=== PATIENT | male | born 1985 | race Caucasian/White ===

== ENCOUNTER 2019-09-27 19:13 | Emergency (ER) | payer SELFPAY ==
[2019-09-27 19:26] VITALS: BP 115/58; PULSE 90; RESP 17; TEMP 36.9; O2SAT 97; BMI 23.7
--- NOTE | 2019-09-27 20:54 | ED_ITS ---
Entered by Ivanna Fam, acting as scribe for Melissa Cabezas MD Sep 27, 2019 19:13 HPI - General Adult General: Chief complaint: General Medical Stated complaint: difficulty breathing Time Seen by Provider: 09/27/19 20:48 Source: patient and family Mode of arrival: ambulatory Limitations: no limitations History of Present Illness: HPI narrative: 34 yo Male presents to ED with complaint of shortness of breath, neck pain, back pain, and cough. Pt states that his throat really doesn't hurt but his neck hurts. Pt's family states that the patient's cough started on Wednesday. Pt states that he has been running a fever. Pt states that his kids have had strep throat and all kinds of viruses. Pt states he has body aches and feels like his lungs hurt. MD complaint: flu like symptoms Onset (ago): day(s) Location: head and neck Radiation: back and neck Severity scale (1-10): 8 Quality: aching Pain Consistency: constant Relieving factors: none Exacerbating factors: other (deep breaths) Associated symptoms: Reports cough, dyspnea, fevers/chills and short of breath; Deny chest pain, headache(s), nausea, rash or vomiting Treatments prior to arrival: none Review of Systems General: Reports: 10 or more systems reviewed and unremarkable except in HPI and below Const: Reports: body aches and fatigue; Denies: fever or chills Eyes: Denies: change in vision ENMT: Denies: throat pain Card: Denies: chest pain Resp: Reports: shortness of breath GI: Denies: abdominal pain, nausea, vomiting or change in bowel habits Musc: Reports: neck pain and back pain; Denies: muscle weakness Skin/Breast: Denies: rash Neuro: Denies: headache Psych: Denies: hopelessness or suicidal ideation Endo: Denies: excessive urination Dario/Lymph: Denies: easy bruising or easy bleeding All/Imm: Denies: hives [facility] ED PFSH: Social History Smoking and tobacco status: current every day smoker Physical Exam Const: COMMON NORMALS: no apparent distress, average body habitus, oriented x3, no limitations, healthy appearing, alert and well nourished HENMT: COMMON NORMALS: normocephalic, external ears normal and external nose normal HEAD & SCALP: normocephalic NOSE: external nose normal EXTERNAL EAR: Yes external ears normal MOUTH: oral and palatal mucosa normal THROAT: posterior oropharynx abnormal erythema; no exudates; posterior oropharynx not normal Eye: COMMON NORMALS: PERRL, EOMs intact bilaterally, conjunctivae normal, no scleral icterus and normal visual fofana by confrontation CONJUNCTIVA: Yes conjunctivae normal PUPIL: Yes PERRL Neck/C-Spine: COMMON NORMALS: full ROM, supple, no meningeal signs and no JVD; negative for no lymphadenopathy GENERAL: Yes lymphadenopathy (mild) matted CERVICAL SPINE: Yes cervical ROM normal Lymph: LYMPHATIC: no lymphadenopathy noted Chest: COMMONS NORMALS: inspection of chest normal Resp: COMMON NORMALS: normal respiratory effort, no retractions, no use of accessory muscles and clear to auscultation bilaterally AUSCULTATION: clear to auscultation bilaterally Cardio: COMMON NORMALS: no JVD, regular rate, regular rhythm, no gallops, no clicks, no murmurs and no rub RATE: regular rate RHYTHM: regular rhythm GI: COMMON NORMALS: normal to inspection, nondistended, normoactive bowel sounds, soft to palpation and non-tender AUSCULTATION: Yes normoactive bowel sounds PALPATION: Yes soft : COMMON NORMALS: Yes no CVA tenderness BLADDER/KIDNEY EXAM: Yes no CVA tenderness Back/Pelvis: COMMON NORMALS: no CVA tenderness Extremity: COMMON NORMALS: normal to inspection Neuro: COMMON NORMALS: oriented x3 SENSORIUM/ORIENTATION: Yes alert MENINGEAL SIGNS: Yes no meningeal signs SPEECH: speech normal Psych: COMMON NORMALS: mental status grossly normal, thought process normal, cooperative, affect normal, speech normal, activity/motor behavior normal, denies hallucinations, denies homicidal ideation and denies suicidal ideation SPEECH: Yes normal speech THOUGHT PROCESS: normal thought process Skin: COMMON NORMALS: no rashes or lesions noted GENERAL SKIN EXAM: no rashes or lesions noted Course Vital Signs: Vital signs: Vital Signs Temperature 98.4 F 09/27/19 19:26 Pulse Rate 90 09/27/19 19:26 Respiratory Rate 17 09/27/19 19:26 Blood Pressure 115/58 09/27/19 19:26 Pulse Oximetry 97 09/27/19 19:26 MDM - General Adult MDM Narrative: Medical decision making narrative: 34-year-old male with negative flu and negative strep swab. No pneumonia on his chest x-ray. I explained to him and his that he likely still has a viral flulike illness that may last up to 7 to 10 days. All questions answered to their satisfaction. Lab Data: Attestation: I reviewed the patient's lab results. Labs: Lab Results 09/27/19 09/27/19 Range/Units 20:47 20:47 Influenza Type A A g Negative (Negative) POC Influenza B Ag Negative (Negative) Group A Strep Rapi d Negative (Negative) Imaging Data^: CXR: Attestation: I personally reviewed and interpreted this imaging study as follows: My impression: No infiltrate no effusion Discharge Plan Discharge Patient Disposition: Home, Self-Care Clinical Impression: Viral illness Condition: Stable Prescriptions: No Action No Known Home Medications RF: 0 Patient Instructions: Viral Syndrome (ED) Activity Restrictions/Additional Instructions: Rest as much as possible and stay hydrated try to avoid caffeine. As we discussed use [id number] symptomatic medication such as generic NyQuil and/or DayQuil. Your symptoms may last up to 7 to 10 days. Coding Level of Care Code ED Channel Cementer Outsole Machine for Chg Fwd Exam Comprehensive The documentation recorded by the Cristel abrams Carmen, accurately reflects the service I personally performed and the decisions made by me, Melissa Cabezas MD Sep 27, 2019 19:13
[2019-09-27 21:09] LABS: Rapid Strep A Test Negative (Negative)
--- NOTE | 2019-09-27 21:09 | XR_ITS ---
WS: [id number] XR chest 2V* [id number] REASON FOR EXAM: soa FINDINGS: The nasogastric tube is been removed as compared to 05/11/2018. The lung fofana are mildly hyper aerated. There is no mucous plugs seen no pneumonia congestion are pulmonary edema. The hilum and apices are normal. XR/XR chest 2V* [id number] IMPRESSION: Hyper aerated lungs otherwise normal chest
[2019-09-27 21:19] LABS: Influenza A by IFA Negative (Negative); Influenza B by IFA Negative (Negative)
== END 2019-09-27 23:08 | disposition home or self-care (01) ==
PROVIDERS: Emergency Provider Emergency Medicine
DX: B34.9 Viral infection, unspecified (principal); F17.210 Nicotine dependence, cigarettes, uncomplicated
CPT/HCPCS: 12345; 71046; 87081; 87804; 87880; 99282; 99283

== ENCOUNTER 2019-10-03 18:22 | Emergency (ER) | payer SELFPAY ==
[2019-10-03 18:51] VITALS: BP 133/82; PULSE 80; RESP 16; TEMP 36.4; O2SAT 97; BMI 24.3
--- NOTE | 2019-10-03 20:03 | CTR_ITS ---
PROCEDURE INFORMATION: Exam: CT Head Without Contrast Exam date and time: 10/03/2019 8:29 PM Age: 34 years old Clinical indication: Injury or trauma; Fall; Work related; Additional info: Fall 25 feet TECHNIQUE: Imaging protocol: Computed tomography of the head without contrast. Total DLP: 892 mGy-cm Radiation optimization: All CT scans at this facility use at least one of these dose optimization techniques: automated exposure control; mA and/or kV adjustment per patient size (includes targeted exams where dose is matched to clinical indication); or iterative reconstruction. COMPARISON: CT head wo con* [id number] 09/06/2018 7:18 PM FINDINGS: Brain: Normal. No hemorrhage. Unremarkable white matter. No mass effect. Ventricles: Normal. No ventriculomegaly. Bones/joints: Unremarkable. No acute fracture. Sinuses: Visualized sinuses are unremarkable. No fluid levels. Mastoid air cells: Visualized mastoid air cells are well aerated. Soft tissues: Unremarkable. CT/CT head wo con* [id number] IMPRESSION: No acute intracranial abnormality. Radiation Dose CTDIVOL = (mGy): DLP = 892 (mGy-cm)
--- NOTE | 2019-10-03 20:03 | CTR_ITS ---
PROCEDURE INFORMATION: Exam: CT Lumbar Spine Without Contrast Exam date and time: 10/03/2019 8:29 PM Age: 34 years old Clinical indication: Injury or trauma; Work related; Initial encounter; Blunt trauma (contusions or hematomas); Injury details: Fall off ladder yesterday, [place] painfall off ladder yesterday, CO pain; Additional info: Back pain; Fall 25 feet TECHNIQUE: Imaging protocol: Computed tomography images of the lumbar spine without contrast. Total DLP: 2043.35 mGy-cm Radiation optimization: All CT scans at this facility use at least one of these dose optimization techniques: automated exposure control; mA and/or kV adjustment per patient size (includes targeted exams where dose is matched to clinical indication); or iterative reconstruction. COMPARISON: No relevant prior studies available. FINDINGS: Vertebrae: No acute fracture. Normal alignment. Discs/Spinal canal/Neural foramina: There is a small disc bulge at L2-L3 without significant stenosis or foraminal narrowing. At L3-L4, there is a moderate disc bulge with mild narrowing of the central canal and [id number] bilateral foraminal narrowing accentuated by mild facet and ligamentum flavum hypertrophy but no critical stenosis. At L4-L5, there is a small disc bulge without stenosis or significant foraminal narrowing. There is a small disc bulge at L5-S1 with mild left foraminal narrowing but no critical stenosis. Soft tissues: Unremarkable. CT/CT lumbar spine wo con* [id number] IMPRESSION: 1. No acute bony abnormality. 2. Small disc bulges with mild narrowing of the central canal and foramina but no critical stenosis. Radiation Dose CTDIVOL = (mGy): DLP = 2043.35 (mGy-cm)
--- NOTE | 2019-10-03 20:03 | CTR_ITS ---
PROCEDURE INFORMATION: Exam: CT Thoracic Spine Without Contrast Exam date and time: 10/03/2019 8:29 PM Age: 34 years old Clinical indication: Injury or trauma; Work related; Initial encounter; Blunt trauma (contusions or hematomas); Injury details: Fall off ladder yesterday, CO pain; Additional info: Back pain; 25 ft fall TECHNIQUE: Imaging protocol: Computed tomography images of the thoracic spine without contrast. Total DLP: 1421.87 mGy-cm Radiation optimization: All CT scans at this facility use at least one of these dose optimization techniques: automated exposure control; mA and/or kV adjustment per patient size (includes targeted exams where dose is matched to clinical indication); or iterative reconstruction. COMPARISON: No relevant prior studies available. FINDINGS: Vertebrae: No acute fracture. Normal alignment. Discs/Spinal canal/Neural foramina: No spinal canal stenosis. Soft tissues: Unremarkable. There is mild volume loss in the lungs. Mild emphysematous changes. CT/CT thoracic spin wo con* [id number] IMPRESSION: Unremarkable CT Spine. Radiation Dose CTDIVOL = (mGy): DLP = 1421.87 (mGy-cm)
--- NOTE | 2019-10-03 20:03 | XRR_ITS ---
PROCEDURE INFORMATION: Exam: XR Left Elbow Exam date and time: 10/03/2019 8:05 PM Age: 34 years old Clinical indication: Injury or trauma; Fall; Work related; Initial encounter; Blunt trauma (contusions or hematomas; Elbow; Left TECHNIQUE: Imaging protocol: XR Left elbow. Views: 3 or more views. COMPARISON: No relevant prior studies available. FINDINGS: Bones/joints: There is no elbow joint effusion. There is a small olecranon enthesophyte. The bone density is appropriate. No periosteal reaction. No osteomyelitis. No acute fracture or dislocation. No bony destructive changes. Soft tissues: There is soft tissue edema overlying the olecranon process that may reflect an olecranon hematoma or bursitis. No foreign body. No gas in the soft tissues. XR/XR elbow LT min 3V* [id number] IMPRESSION: 1. No acute bony abnormality. 2. There is soft tissue edema overlying the olecranon process that may reflect an olecranon hematoma or bursitis.
--- NOTE | 2019-10-03 20:03 | CTR_ITS ---
PROCEDURE INFORMATION: Exam: CT Cervical Spine Without Contrast Exam date and time: 10/03/2019 8:29 PM Age: 34 years old Clinical indication: Injury or trauma; Fall; Work related; Initial encounter; Blunt trauma; Additional info: Neck pain; 25 ft fall TECHNIQUE: Imaging protocol: Computed tomography images of the cervical spine without contrast. Total DLP: 670.36 mGy-cm Radiation optimization: All CT scans at this facility use at least one of these dose optimization techniques: automated exposure control; mA and/or kV adjustment per patient size (includes targeted exams where dose is matched to clinical indication); or iterative reconstruction. COMPARISON: CT Cervical Spine wo* [id number] 09/06/2018 7:21 PM FINDINGS: Vertebrae: No acute fracture. Normal alignment. Discs/Spinal canal/Neural foramina: No disc herniations. No spinal canal stenosis. No neural foraminal narrowing. Soft tissues: Unremarkable. Lungs: Lung apices are normal. Emphysematous changes are noted. CT/CT cervical spin wo con* [id number] IMPRESSION: No acute findings. Radiation Dose CTDIVOL = (mGy): DLP = 670.36 (mGy-cm)
--- NOTE | 2019-10-03 20:03 | CTR_ITS ---
PROCEDURE INFORMATION: Exam: CT Chest With Contrast Exam date and time: 10/03/2019 8:29 PM Age: 34 years old Clinical indication: Injury or trauma; Fall; Work related; Initial encounter; Generalized; Blunt trauma (contusions or hematomas); Additional info: Fall 25 ft TECHNIQUE: Imaging protocol: Computed tomography of the chest with intravenous contrast. Total DLP: 1268.82 mGy-cm Radiation optimization: All CT scans at this facility use at least one of these dose optimization techniques: automated exposure control; mA and/or kV adjustment per patient size (includes targeted exams where dose is matched to clinical indication); or iterative reconstruction. Contrast material: VISI; Contrast volume: 95 ml; Contrast route: 20G; COMPARISON: CT abdomen pelvis w con* [id number] 05/11/2018 5:24 AM FINDINGS: Lungs: There is subpleural atelectasis of the dependent portions of the lungs. Pleural space: Unremarkable. No pneumothorax. No pleural effusion. Heart: Unremarkable. No cardiomegaly. No pericardial effusion. Aorta: Unremarkable. No aortic aneurysm. Lymph nodes: Unremarkable. No enlarged lymph nodes. Bones/joints: Unremarkable. No acute fracture. Soft tissues: Unremarkable. IMPRESSION: No acute abnormality. PROCEDURE INFORMATION: Exam: CT Abdomen And Pelvis With Contrast Exam date and time: 10/03/2019 8:29 PM Age: 34 years old Clinical indication: Injury or trauma; Fall; Work related; Initial encounter; Generalized; Blunt trauma (contusions or hematomas); Additional info: fall TECHNIQUE: Imaging protocol: Computed tomography of the abdomen and pelvis with intravenous contrast. Total DLP: 1268.82 mGy-cm Radiation optimization: All CT scans at this facility use at least one of these dose optimization techniques: automated exposure control; mA and/or kV adjustment per patient size (includes targeted exams where dose is matched to clinical indication); or iterative reconstruction. Contrast material: VISI; Contrast volume: 95 ml; Contrast route: 20G; COMPARISON: CT abdomen pelvis w con* [id number] 05/11/2018 5:24 AM FINDINGS: Liver: Unremarkable.No mass. Gallbladder and bile ducts: Normal. No calcified stones. No ductal dilation. Pancreas: Normal. No ductal dilation. Spleen: Normal. No splenomegaly. Adrenals: Normal. No mass. Kidneys and ureters: Normal. No hydronephrosis. Stomach and bowel: Unremarkable. No obstruction. No mucosal thickening. Appendix: No evidence of appendicitis. Intraperitoneal space: Unremarkable. No free air. No significant fluid collection. Vasculature: Unremarkable.No abdominal aortic aneurysm. Lymph nodes: Unremarkable.No enlarged lymph nodes. Bladder: Unremarkable as visualized. Reproductive: Unremarkable as visualized. Bones/joints: Unremarkable. No acute fracture. Soft tissues: Unremarkable. CT/CT chest abd pel w con* IMPRESSION: No acute findings. Radiation Dose CTDIVOL = (mGy): DLP = 1268.82~1268.82 (mGy-cm)
--- NOTE | 2019-10-03 20:05 | W.ED.FALL ---
HPI - Fall General: Chief Complaint: Fall Stated Complaint: FELL OFF A LADDER Time Seen by Provider: 10/03/19 19:59 Source: patient Mode of arrival: ambulatory Limitations: no limitations History of Present Illness: HPI Narrative: Patient is a 34-year-old male who presents to ED today with multiple physical complaints stemming from a 25 foot ladder fall that occurred yesterday. Patient states it was raining and he slipped off the ladder at a height of 25 feet and landed directly onto his back. Patient states he has a headache, neck pain, back pain, and chest pain. Patient states he did not receive any sleep last night due to his discomfort. He does not report losing consciousness but thinks he did strike his head. MD complaint: fall Onset (ago): hour(s) Fall from: from height (distance) (25 feet) Fall witnessed: yes, by bystander Place fall occurred: work Loss of consciousness: None Prolonged down time: no Symptoms prior to fall: none Context: tripped/slipped Location of injury: head, neck, chest and back Associated symptoms-after fall: Reports chest pain, headache(s) and neck pain; Denies abdominal pain or lightheadedness Review of Systems Const: Denies: fever, chills, body aches, change in appetite, change in weight or fatigue Eyes: Denies: change in vision or blurry vision Card: Reports: chest pain; Denies: palpitations, irregular heart rhythm, edema, lightheadedness, syncope, pre-syncope or shortness of breath when lying down Resp: Reports: pain on inspiration; Denies: shortness of breath, productive cough, coughing up blood or chest congestion GI: Denies: abdominal pain, nausea or vomiting : Denies: flank pain, difficulty urinating, painful urination, urinary frequency or urinary urgency Musc: Reports: neck pain and back pain Neuro: Reports: headache; Denies: numbness in extremities, weakness in extremities or changes in sensation PFS ED PFSH: Social History Smoking and tobacco status: current every day smoker Physical Exam Const: COMMON NORMALS: no apparent distress, average body habitus, oriented x3, no limitations, healthy appearing, alert and well nourished HENMT: COMMON NORMALS: normocephalic and head/scalp atraumatic HEAD & SCALP: normocephalic and atraumatic Neck/C-Spine: OTHER: c-collar placed; TTP along mid cervical spine Chest: COMMONS NORMALS: inspection of chest normal OTHER: TTP along anterior and bilateral chest perry Resp: COMMON NORMALS: normal respiratory effort and clear to auscultation bilaterally AUSCULTATION: clear to auscultation bilaterally Cardio: COMMON NORMALS: regular rate and regular rhythm RATE: regular rate RHYTHM: regular rhythm GI: COMMON NORMALS: normal to inspection, nondistended, normoactive bowel sounds, soft to palpation, no hepatosplenomegaly and no masses PALPATION: Yes soft, Yes tender (RLQ) and Yes no hepatosplenomegaly Back/Pelvis: THORACIC SPINE/UPPER BACK: Yes thoracic spinal tenderness T-spine tenderness location: T4, T5, T6, T7 and T8 LUMBAR SPINE/LOWER BACK: Yes lumbar spinal tenderness Lumbar spinal tenderness location: L3, L4 and L5 Extremity: OTHER: TTP and limited ROM of L elbow; swelling noted; NV intact extremities are otherwise normal to inspection with normal ROM Neuro: COMMON NORMALS: oriented x3 SENSORIUM/ORIENTATION: Yes alert Skin: COMMON NORMALS: no rashes or lesions noted GENERAL SKIN EXAM: no rashes or lesions noted Course Vital Signs: Vital signs: Vital Signs Temperature 97.6 F 10/03/19 18:51 Pulse Rate 80 10/03/19 18:51 Respiratory Rate 16 10/03/19 21:39 Blood Pressure 133/82 10/03/19 18:51 Pulse Oximetry 97 10/03/19 18:51 MDM - Fall Lab Data: Labs: Lab Results 10/03/19 10/03/19 Range/Units 20:14 20:14 WBC 6.8 (4.0-10.0) 10^3/ uL RBC 4.01 L (4.1-5.3) 10^6/u L Hgb 12.3 (11.7-16.6) g/dL Hct 37.2 L (42.0-52.0) % MCV 92.8 (80-94) fL MCH 30.7 (28.0-34.0) pg MCHC 33.1 (30.0-36.0) g/dL RDW 12.8 (12.1-15.1) % Plt Count 169 (130-400) 10^3/c mm MPV 10.0 (7.4-10.4) fL Neut % (Auto) 46.9 % Lymph % (Auto) 40.2 % [place] % (Auto) 6.6 % Eos % (Auto) 5.8 % Baso % (Auto) 0.4 % Neut # (Auto) 3.2 (1.8-7.7) 10^3/u L Lymph # (Auto) 2.7 (0.8-4.8) 10^3/u L [place] # (Auto) 0.5 (0.2-0.9) 10^3/u L Eos # (Auto) 0.4 (0.0-0.8) 10^3/u L Baso # (Auto) 0.0 (0.0-0.1) 10^3/u L Nucleated RBC % (a uto) 0 % Nucleated RBCs # 0.0 /100WBC Sodium 141 (136-145) mmol/L Potassium 4.0 (3.5-5.1) mmol/L Chloride 102 (98-107) mmol/L Carbon Dioxide 29 (22-29) mmol/L Anion Gap 14.0 (5-19) BUN 12 (6-20) mg/dL Creatinine 0.9 (0.7-1.2) mg/dL GFR Calculation 96.0 (90-130) mL/min Glucose 100 (65-115) mg/dL Calculated Osmolal ity 288 (285-295) mOsm/k g Calcium 9.9 (8.5-10.5) mg/dL Total Bilirubin 0.2 (0.15-1.2) mg/dL AST 24 (0-40) U/L ALT 15 (0-41) U/L Alkaline Phosphata se 62 (40-130) IU/L Total Protein 7.1 (6.6-8.7) g/dL Albumin 4.7 (3.5-5.2) g/dL Globulin 2.4 (1.3-4.6) g/dL Imaging Data^: L elbow XR: Radiologist's impression: [address] [address] XRay Report Signed Patient: Chadwick Chaves Unit #: [id number] : 1985 Age/Sex: 34 / M ADM Date: 10/03/19 Loc: ER Room/Bed: Attending Dr: Ordering Provider/Ordering MD: Miracle Mccracken Date of Service: 10/03/19 Procedure(s): XR elbow LT min 3V* [id number] Accession Number(s): [id number] Report Number: [id number] PROCEDURE INFORMATION: Exam: XR Left Elbow Exam date and time: 10/03/2019 8:05 PM Age: 34 years old Clinical indication: Injury or trauma; Fall; Work related; Initial encounter; Blunt trauma (contusions or hematomas; Elbow; Left TECHNIQUE: Imaging protocol: XR Left elbow. Views: 3 or more views. COMPARISON: No relevant prior studies available. FINDINGS: Bones/joints: There is no elbow joint effusion. There is a small olecranon enthesophyte. The bone density is appropriate. No periosteal reaction. No osteomyelitis. No acute fracture or dislocation. No bony destructive changes. Soft tissues: There is soft tissue edema overlying the olecranon process that may reflect an olecranon hematoma or bursitis. No foreign body. No gas in the soft tissues. XR/XR elbow LT min 3V* [id number] IMPRESSION: 1. No acute bony abnormality. 2. There is soft tissue edema overlying the olecranon process that may reflect an olecranon hematoma or bursitis. Dictated By: Yoanna Madrid Signed By: Yoanna Madrid Signed Date/Time: 10/03/192052 DD/ 51 CT Head: Radiologist's impression: [address] [address] [address] Scan Report Signed Patient: Chadwick Chaves Unit #: [id number] : 1985 Age/Sex: 34 / M ADM Date: 10/03/19 Loc: ER Room/Bed: Attending Dr: Ordering Provider/Ordering MD: Miracle Mccracken Date of Service: 10/03/19 Procedure(s): CT head wo con* [id number] Accession Number(s): [id number] Report Number: [id number] PROCEDURE INFORMATION: Exam: CT Head Without Contrast Exam date and time: 10/03/2019 8:29 PM Age: 34 years old Clinical indication: Injury or trauma; Fall; Work related; Additional info: Fall 25 feet TECHNIQUE: Imaging protocol: Computed tomography of the head without contrast. Total DLP: 892 mGy-cm Radiation optimization: All CT scans at this facility use at least one of these dose optimization techniques: automated exposure control; mA and/or kV adjustment per patient size (includes targeted exams where dose is matched to clinical indication); or iterative reconstruction. COMPARISON: CT head wo con* [id number] 09/06/2018 7:18 PM FINDINGS: Brain: Normal. No hemorrhage. Unremarkable white matter. No mass effect. Ventricles: Normal. No ventriculomegaly. Bones/joints: Unremarkable. No acute fracture. Sinuses: Visualized sinuses are unremarkable. No fluid levels. Mastoid air cells: Visualized mastoid air cells are well aerated. Soft tissues: Unremarkable. CT/CT head wo con* [id number] IMPRESSION: No acute intracranial abnormality. Radiation Dose CTDIVOL = (mGy): DLP = 892 (mGy-cm) Dictated By: Yoanna Madrid Signed By: Yoanna Madrid Signed Date/Time: 10/03/192054 DD/ 52 CT cervical: Radiologist's impression: [address] [address] [address] Scan Report Signed Patient: Chadwick Chaves Unit #: [id number] : 1985 Age/Sex: 34 / M ADM Date: 10/03/19 Loc: ER Room/Bed: Attending Dr: Ordering Provider/Ordering MD: Miracle Mccracken Date of Service: 10/03/19 Procedure(s): CT cervical spin wo con* [id number] Accession Number(s): [id number] Report Number: [id number] PROCEDURE INFORMATION: Exam: CT Cervical Spine Without Contrast Exam date and time: 10/03/2019 8:29 PM Age: 34 years old Clinical indication: Injury or trauma; Fall; Work related; Initial encounter; Blunt trauma; Additional info: Neck pain; 25 ft fall TECHNIQUE: Imaging protocol: Computed tomography images of the cervical spine without contrast. Total DLP: 670.36 mGy-cm Radiation optimization: All CT scans at this facility use at least one of these dose optimization techniques: automated exposure control; mA and/or kV adjustment per patient size (includes targeted exams where dose is matched to clinical indication); or iterative reconstruction. COMPARISON: CT Cervical Spine wo* [id number] 09/06/2018 7:21 PM FINDINGS: Vertebrae: No acute fracture. Normal alignment. Discs/Spinal canal/Neural foramina: No disc herniations. No spinal canal stenosis. No neural foraminal narrowing. Soft tissues: Unremarkable. Lungs: Lung apices are normal. Emphysematous changes are noted. CT/CT cervical spin wo con* [id number] IMPRESSION: No acute findings. Radiation Dose CTDIVOL = (mGy): DLP = 670.36 (mGy-cm) Dictated By: Yoanna Madrid Signed By: Yoanna Madrid Signed Date/Time: 10/03/192055 DD/ 54 CT thoracic : Radiologist's impression: [address] [address] [address] Scan Report Signed Patient: Chadwick Chaves Unit #: [id number] : 1985 Age/Sex: 34 / M ADM Date: 10/03/19 Loc: ER Room/Bed: Attending Dr: Ordering Provider/Ordering MD: Miracle Mccracken Date of Service: 10/03/19 Procedure(s): CT thoracic spin wo con* [id number] Accession Number(s): [id number] Report Number: [id number] PROCEDURE INFORMATION: Exam: CT Thoracic Spine Without Contrast Exam date and time: 10/03/2019 8:29 PM Age: 34 years old Clinical indication: Injury or trauma; Work related; Initial encounter; Blunt trauma (contusions or hematomas); Injury details: Fall off ladder yesterday, [place] pain; Additional info: Back pain; 25 ft fall TECHNIQUE: Imaging protocol: Computed tomography images of the thoracic spine without contrast. Total DLP: 1421.87 mGy-cm Radiation optimization: All CT scans at this facility use at least one of these dose optimization techniques: automated exposure control; mA and/or kV adjustment per patient size (includes targeted exams where dose is matched to clinical indication); or iterative reconstruction. COMPARISON: No relevant prior studies available. FINDINGS: Vertebrae: No acute fracture. Normal alignment. Discs/Spinal canal/Neural foramina: No spinal canal stenosis. Soft tissues: Unremarkable. There is mild volume loss in the lungs. Mild emphysematous changes. CT/CT thoracic spin wo con* [id number] IMPRESSION: Unremarkable CT Spine. Radiation Dose CTDIVOL = (mGy): DLP = 1421.87 (mGy-cm) Dictated By: Yoanna Madrid Signed By: Yoanna Madrid Signed Date/Time: 10/03/192110 DD/ 09 CT lumbar: Radiologist's impression: [address] [address] [address] Scan Report Signed Patient: Chadwick Chaves Unit #: [id number] : 1985 Age/Sex: 34 / M ADM Date: 10/03/19 Loc: ER Room/Bed: Attending Dr: Ordering Provider/Ordering MD: Miracle Mccracken Date of Service: 10/03/19 Procedure(s): CT lumbar spine wo con* [id number] Accession Number(s): [id number] Report Number: [id number] PROCEDURE INFORMATION: Exam: CT Lumbar Spine Without Contrast Exam date and time: 10/03/2019 8:29 PM Age: 34 years old Clinical indication: Injury or trauma; Work related; Initial encounter; Blunt trauma (contusions or hematomas); Injury details: Fall off ladder yesterday, [place] painfall off ladder yesterday, [place] pain; Additional info: Back pain; Fall 25 feet TECHNIQUE: Imaging protocol: Computed tomography images of the lumbar spine without contrast. Total DLP: 2043.35 mGy-cm Radiation optimization: All CT scans at this facility use at least one of these dose optimization techniques: automated exposure control; mA and/or kV adjustment per patient size (includes targeted exams where dose is matched to clinical indication); or iterative reconstruction. COMPARISON: No relevant prior studies available. FINDINGS: Vertebrae: No acute fracture. Normal alignment. Discs/Spinal canal/Neural foramina: There is a small disc bulge at L2-L3 without significant stenosis or foraminal narrowing. At L3-L4, there is a moderate disc bulge with mild narrowing of the central canal and [id number] bilateral foraminal narrowing accentuated by mild facet and ligamentum flavum hypertrophy but no critical stenosis. At L4-L5, there is a small disc bulge without stenosis or significant foraminal narrowing. There is a small disc bulge at L5-S1 with mild left foraminal narrowing but no critical stenosis. Soft tissues: Unremarkable. CT/CT lumbar spine wo con* [id number] IMPRESSION: 1. No acute bony abnormality. 2. Small disc bulges with mild narrowing of the central canal and foramina but no critical stenosis. Radiation Dose CTDIVOL = (mGy): DLP = 2043.35 (mGy-cm) Dictated By: Yoanna Madrid Signed By: Yoanna Madrid Signed Date/Time: 10/03/192114 DD/ 12 CT chest/abd/pelvis: Radiologist's impression: [place] [address] CT Scan Report Signed Patient: Chadwick Chaves Unit #: [id number] : 1985 Age/Sex: 34 / M ADM Date: 10/03/19 Loc: ER Room/Bed: Attending Dr: Ordering Provider/Ordering MD: Miracle Mccracken Date of Service: 10/03/19 Procedure(s): CT chest abd pel w con* Accession Number(s): [id number] Report Number: [id number] PROCEDURE INFORMATION: Exam: CT Chest With Contrast Exam date and time: 10/03/2019 8:29 PM Age: 34 years old Clinical indication: Injury or trauma; Fall; Work related; Initial encounter; Generalized; Blunt trauma (contusions or hematomas); Additional info: Fall 25 ft TECHNIQUE: Imaging protocol: Computed tomography of the chest with intravenous contrast. Total DLP: 1268.82 mGy-cm Radiation optimization: All CT scans at this facility use at least one of these dose optimization techniques: automated exposure control; mA and/or kV adjustment per patient size (includes targeted exams where dose is matched to clinical indication); or iterative reconstruction. Contrast material: VISI; Contrast volume: 95 ml; Contrast route: 20G; COMPARISON: CT abdomen pelvis w con* [id number] 05/11/2018 5:24 AM FINDINGS: Lungs: There is subpleural atelectasis of the dependent portions of the lungs. Pleural space: Unremarkable. No pneumothorax. No pleural effusion. Heart: Unremarkable. No cardiomegaly. No pericardial effusion. Aorta: Unremarkable. No aortic aneurysm. Lymph nodes: Unremarkable. No enlarged lymph nodes. Bones/joints: Unremarkable. No acute fracture. Soft tissues: Unremarkable. IMPRESSION: No acute abnormality. PROCEDURE INFORMATION: Exam: CT Abdomen And Pelvis With Contrast Exam date and time: 10/03/2019 8:29 PM Age: 34 years old Clinical indication: Injury or trauma; Fall; Work related; Initial encounter; Generalized; Blunt trauma (contusions or hematomas); Additional info: Fall 25 ft TECHNIQUE: Imaging protocol: Computed tomography of the abdomen and pelvis with intravenous contrast. Total DLP: 1268.82 mGy-cm Radiation optimization: All CT scans at this facility use at least one of these dose optimization techniques: automated exposure control; mA and/or kV adjustment per patient size (includes targeted exams where dose is matched to clinical indication); or iterative reconstruction. Contrast material: VISI; Contrast volume: 95 ml; Contrast route: 20G; COMPARISON: CT abdomen pelvis w con* [id number] 05/11/2018 5:24 AM FINDINGS: Liver: Unremarkable.No mass. Gallbladder and bile ducts: Normal. No calcified stones. No ductal dilation. Pancreas: Normal. No ductal dilation. Spleen: Normal. No splenomegaly. Adrenals: Normal. No mass. Kidneys and ureters: Normal. No hydronephrosis. Stomach and bowel: Unremarkable. No obstruction. No mucosal thickening. Appendix: No evidence of appendicitis. Intraperitoneal space: Unremarkable. No free air. No significant fluid collection. Vasculature: Unremarkable.No abdominal aortic aneurysm. Lymph nodes: Unremarkable.No enlarged lymph nodes. Bladder: Unremarkable as visualized. Reproductive: Unremarkable as visualized. Bones/joints: Unremarkable. No acute fracture. Soft tissues: Unremarkable. CT/CT chest abd pel w con* IMPRESSION: No acute findings. Radiation Dose CTDIVOL = (mGy): DLP = 1268.82 1268.82 (mGy-cm) Dictated By: Yoanna Madrid Signed By: Yoanna Madrid Signed Date/Time: 10/03/192130 DD/ 28 Discharge Plan Discharge Patient Disposition: Home, Self-Care Clinical Impression: Fall on and from ladder, initial encounter, Acute neck pain Back pain Qualifiers: Back pain location: thoracic back pain Chronicity: acute Back pain laterality: midline Qualified Code(s): M54.6 - Pain in thoracic spine Contusion of elbow, left Qualifiers: Encounter type: initial encounter Qualified Code(s): S50.02XA - Contusion of left elbow, initial encounter Condition: Stable Prescriptions: New hydrocodone-acetaminophen 5-325 mg tablet 1 tab PO Q6H PRN (Reason: pain) Qty: 14 RF: 0 No Action No Known Home Medications RF: 0 Discharge Orders: Discharge Order (Routine); Ordered 10/03/19 Ordered By: Miracle Mccracken Discharge Diet: Usual diet Discharge Activity: Increase activity as tolerated Coding Level of Care Code ED Tractor Trailer Operator for Chg Fwd Exam Comprehensive
[2019-10-03] MEDS: sodium chloride 0.9% 1,000 ML 999 ML IV (20:15)
[2019-10-03 20:18] LABS: Basophils % 0.4 %; Eosinophils # 0.4 10^3/uL (0.0-0.8); Eosinophils % 5.8 %; Hematocrit 37.2 % (42.0-52.0); Hemoglobin 12.3 g/dL (11.7-16.6); Lymphocytes # 2.7 10^3/uL (0.8-4.8); Lymphocytes % 40.2 %; Mean Corpuscular HGB Conc 33.1 g/dL (30.0-36.0); Mean Corpuscular Hemoglobin 30.7 pg (28.0-34.0); Mean Corpuscular Volume 92.8 fL (80-94); Monocytes # 0.5 10^3/uL (0.2-0.9); Monocytes % 6.6 %; Neutrophils # 3.2 10^3/uL (1.8-7.7); Neutrophils % 46.9 %; Nucleated Red Blood Cells % 0 %; Platelet Count 169 10^3/cmm (130-400); Red Blood Count 4.01 10^6/uL (4.1-5.3); Red Cell Distribution Width 12.8 % (12.1-15.1); White Blood Count 6.8 10^3/uL (4.0-10.0)
[2019-10-03 20:35] LABS: Alanine Aminotransferase 15 U/L (0-41); Albumin Level 4.7 g/dL (3.5-5.2); Alkaline Phosphatase 62 IU/L (40-130); Aspartate Amino Transferase 24 U/L (0-40); Blood Urea Nitrogen 12 mg/dL (6-20); Calcium 9.9 mg/dL (8.5-10.5); Carbon Dioxide 29 mmol/L (22-29); Chloride 102 mmol/L (98-107); Globulin 2.4 g/dL (1.3-4.6); Glucose 100 mg/dL (65-115); Osmolality Calculated 288 mOsm/kg (285-295); Sodium 141 mmol/L (136-145); Total Bilirubin 0.2 mg/dL (0.15-1.2); Total Protein 7.1 g/dL (6.6-8.7)
[2019-10-03] MEDS: iodixanol 320 mg/mL 100mL Btl IV (21:11)
[2019-10-03 21:39] VITALS: RESP 16
[2019-10-03] MEDS: morphine 4 mg/mL SDV 1 mL IVP (21:39)
[2019-10-03 21:48] VITALS: BP 117/59; PULSE 67; RESP 16; O2SAT 96
== END 2019-10-03 21:49 | disposition home or self-care (01) ==
PROVIDERS: Emergency Provider Physician Assistant
DX: S50.02XA Contusion of left elbow, initial encounter (principal); M54.2 Cervicalgia; M54.9 Dorsalgia, unspecified; F17.200 Nicotine dependence, unspecified, uncomplicated
CPT/HCPCS: 12345; 36415; 70450; 71260; 72125; 72128; 72131; 73080; 74177; 80053; 85025; 96361; 96372; 96374; 96375; 96376; 99283; J2270; J7030; Q9967

== ENCOUNTER 2020-07-08 20:06 | Emergency (ER) | payer OTHER, SELFPAY ==
[2020-07-08 20:23] VITALS: BP 105/76; PULSE 98; RESP 20; TEMP 36.4; O2SAT 99; BMI 24.0
--- NOTE | 2020-07-08 20:38 | W.ED.COVID ---
HPI - COVID General: Chief Complaint: COVID symptoms Stated Complaint: SOB,COUGH,LOSS OF SMELL,NAUSEA,DIZZY Time Seen by Provider: 07/08/20 20:35 Source: patient Mode of arrival: ambulatory Limitations: no limitations Triage information: Has fever, cough or shortness of breath. No known COVID + exposure last 14 days History of Present Illness: HPI Narrative: 35-year-old male states that over the last 2 days has had body aches chills cough loss of taste and smell along with a sore throat. He states he is also had feelings like his throat is closing. He has had sick contacts. He denies any fever and is in no distress here with a normal pulse ox. He had no vomiting or diarrhea. COVID 19 common symptoms: positive chills, body aches and throat pain; negative fever(s), dyspnea, headache(s), nausea, vomiting or diarrhea COVID 19 other sytmptoms: negative chest pain COVID Results: No Data to Display Review of Systems Const: Reports: chills and body aches; Denies: fever(s) or change in appetite Eyes: Denies: blurry vision or eye discomfort ENMT: Reports: throat pain; Denies: dental pain Card: Denies: chest pain Resp: Denies: dyspnea GI: Denies: abdominal pain, nausea, vomiting or diarrhea : Denies: dysuria Musc: Denies: neck pain or back pain Skin/Breast: Denies: rash Neuro: Denies: headache(s) Psych: Denies: depression Dario/Lymph: Denies: easy bruising All/Imm: Denies: urticaria PFS ED PFSH: Social History Smoking and tobacco status: current every day smoker Physical Exam Const: COMMON NORMALS: no acute distress, patient oriented x3 and healthy appearing HENMT: COMMON NORMALS: normocephalic and atraumatic HEAD & SCALP: normocephalic and atraumatic OTHER: No throat swelling or erythema patient is handling his secretions well Eye: COMMON NORMALS: Equal, round and reactive pupils present and EOMs intact bilaterally PUPIL: Yes Equal, round and reactive pupils present Neck/C-Spine: COMMON NORMALS: full ROM and supple Chest: COMMONS NORMALS: normal inspection of the chest and normal palpation of entire chest wall Resp: COMMON NORMALS: normal respiratory effort, No retractions, No use of accessory muscles and clear to auscultation bilaterally AUSCULTATION: clear to auscultation bilaterally Cardio: COMMON NORMALS: regular rate, regular rhythm and No murmurs present (Cardio) RATE: regular rate RHYTHM: regular rhythm GI: COMMON NORMALS: Normal to inspection, nondistended, normoactive bowel sounds present, Soft to palpation, non-tender and no masses PALPATION: Yes Soft to palpation Extremity: COMMON NORMALS: normal to inspection and full ROM Neuro: COMMON NORMALS: patient oriented x3, moves all extremities and no focal motor deficits Psych: COMMON NORMALS: mental status grossly normal, Normal thought process present and cooperative THOUGHT PROCESS: Normal thought process present Skin: COMMON NORMALS: no rashes or lesions noted and no wounds GENERAL SKIN EXAM: no rashes or lesions noted Course Vital Signs: Vital signs: Vital Signs Temperature 97.5 F L 07/08/20 20:23 Pulse Rate 98 07/08/20 20:23 Respiratory Rate 20 H 07/08/20 20:23 Blood Pressure 105/76 07/08/20 20:23 Pulse Oximetry 99 07/08/20 20:23 MDM - COVID MDM Narrative: Medical decision making narrative: Patient presents with Covid-like symptoms. He is well-appearing here and has no signs of peritonsillar abscess or throat abnormality. Patient stable for discharge is to self quarantine until he gets Covid results. He is return if any worsening. He has no dyspnea or hypoxia here. COVID Results: No Data to Display Discharge Plan Discharge Patient Disposition: Home Clinical Impression: Suspected severe acute respiratory syndrome coronavirus 2 (SARS-CoV-2) infection, Suspected 2019-nCoV infection Condition: Stable Prescriptions: No Action No Known Home Medications RF: 0 hydrocodone-acetaminophen 5-325 mg tablet 1 tab PO Q6H PRN (Reason: pain) Qty: 14 RF: 0 Discharge Orders: Discharge ED (Routine); Ordered 07/08/20 Ordered By: Ekta Huang Discharge Diet: Advance as tolerated Discharge Activity: Resume usual activity Patient Instructions: Upper Respiratory Infection (ED) Coding Level of Care Code ED Sales And Production Manager for Tracy Morris
[2020-07-08 20:58] VITALS: O2SAT 98
[2020-07-08] MEDS: dexamethasone 4 mg/mL INJ 10 MG IM (20:59)
[2020-07-08 21:00] VITALS: O2SAT 98
[2020-07-10 03:49] LABS: Coronavirus Lab Test PTC Negative
--- NOTE | 2020-07-10 16:58 | PC.NURSE ---
pt called and informed of covid results
== END 2020-07-08 21:03 | disposition home or self-care (01) ==
PROVIDERS: Emergency Provider Emergency Medicine
DX: Z20.828 Contact with and (suspected) exposure to other viral communicable diseases (principal); F17.210 Nicotine dependence, cigarettes, uncomplicated
CPT/HCPCS: 12345; 87635; 96372; 99281; 99283; J1100

== ENCOUNTER 2021-03-13 14:36 | Emergency (ER) | payer SELFPAY ==
[2021-03-13 15:21] VITALS: BP 127/75; PULSE 93; RESP 19; TEMP 38.1; O2SAT 99
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
[2021-03-13 17:53] VITALS: BP 144/78; PULSE 86; RESP 16; O2SAT 97
[2021-03-14 15:00] LABS: Coronavirus Test Green County Not Detected
--- NOTE | 2021-03-14 18:44 | PC.NURSE ---
pt notified of negative covid results
== END 2021-03-13 17:54 | disposition home or self-care (01) ==
PROVIDERS: Emergency Provider Nurse Practitioner Family
DX: S22.41XA Multiple fractures of ribs, right side, initial encounter for closed fracture (principal); R09.1 Pleurisy; F17.210 Nicotine dependence, cigarettes, uncomplicated; Y09 Assault by unspecified means; Z20.822 Contact with and (suspected) exposure to COVID-19
CPT/HCPCS: 71101; 87635; 99282